=== PATIENT | male | born 1980 | race Caucasian/White ===

== ENCOUNTER → 2020-11-19 10:02 | Emergency (ER) | payer SELFPAY ==
[~2020-11-19 10:02] MED LIST: LIBRIUM25 MG PO; LOPRESSOR50 MG PO; NORVASC5 MG PO
== END | disposition expired ==
LOC: FER 10:02
DX: I10 Essential (primary) hypertension; F17.210 Nicotine dependence, cigarettes, uncomplicated
CPT/HCPCS: 99285